=== PATIENT | female | born 1985 | race Caucasian/White ===

== ENCOUNTER → 2017-10-20 | Outpatient (CLI) | payer BC ==
[2017-10-21 04:05] LABS: Source VAG/CERVIX
[2017-10-22 15:11] LABS: HPV Genotype 16 Not Detected (NOTDET); HPV Genotype 18 Not Detected (NOTDET)
[2017-11-07 09:59] LABS: HPV High Risk Other Not Detected (NOTDET)
== END | disposition home or self-care (01) ==
LOC: LAB 10:05
PROVIDERS: Obstetrics & Gynecology
DX: Z01.419 Encounter for gynecological examination (general) (routine) without abnormal findings (principal); Z11.3 Encounter for screening for infections with a predominantly sexual mode of transmission
CPT/HCPCS: 87491; 87591; 87624; 87661; G0123

== ENCOUNTER → 2018-10-25 | Outpatient (CLI) | payer BC ==
[2018-10-31 23:10] LABS: CHLAMYDIA BY NAA Negative (Negative); GONOCOCCUS BY NAA Negative (Negative); HPV 16 Negative (Negative); HPV 18 Negative (Negative); HPV OTHER HR TYPES Negative (Negative); TRICH VAG BY NAA Negative (Negative)
== END | disposition home or self-care (01) ==
LOC: LAB 11:16 → LAB SHORT 11:16
PROVIDERS: Obstetrics & Gynecology
DX: Z01.419 Encounter for gynecological examination (general) (routine) without abnormal findings (principal); Z11.3 Encounter for screening for infections with a predominantly sexual mode of transmission
CPT/HCPCS: 87491; 87591; 87624; 87661; G0123

== ENCOUNTER → 2019-10-31 | Outpatient (CLI) | payer BC ==
[2019-11-02 15:09] LABS: HPV 16 Negative (Negative); HPV 18 Negative (Negative); HPV OTHER HR TYPES Negative (Negative)
== END | disposition home or self-care (01) ==
LOC: LAB SHORT 10:45 → LAB 10:45
PROVIDERS: Obstetrics & Gynecology
DX: Z01.419 Encounter for gynecological examination (general) (routine) without abnormal findings (principal)
CPT/HCPCS: 87624; G0123

== ENCOUNTER → 2022-03-09 | Outpatient (CLI) | payer SELFPAY ==
[2022-03-12 17:09] LABS: HSV-1 DNA Negative (Negative); HSV-2 DNA Negative (Negative)
== END | disposition home or self-care (01) ==
LOC: LAB 09:11 → LAB SHORT 09:11
PROVIDERS: Obstetrics & Gynecology
DX: N76.6 Ulceration of vulva (principal)
CPT/HCPCS: 87529

== ENCOUNTER → 2023-03-15 | Outpatient (CLI) | payer OTHER ==
[2023-03-17 14:10] LABS: HPV 16 Negative (Negative); HPV 18 Negative (Negative); HPV OTHER HR TYPES Negative (Negative)
== END | disposition home or self-care (01) ==
LOC: LAB SHORT 10:56 → LAB 10:56
PROVIDERS: Obstetrics & Gynecology
DX: Z01.419 Encounter for gynecological examination (general) (routine) without abnormal findings (principal)
CPT/HCPCS: 87624; G0145

== ENCOUNTER 2025-06-17 08:40 | Day surgery (SDC) | payer BC ==
[~2025-06-17] VITALS: Ht 160 cm; Wt 59.6 kg
[2025-06-17] VITALS (11 sets, daily range): BP systolic 113–122; BP diastolic 75–98
[~2025-06-17 08:40] MED LIST: BUPR150ER PO; Dexamethasone Sod Phos 10 MG/ML 1ML VIAL ONE; FentaNYL Citrate 50 MCG/ML 2 ML Injection ONE; MULTI-VITAMIN1 EAC2 PO; Ondansetron HCl 2 MG / ML 2ML Vial ONE; PROBIOTIC1 EA13 PO
[2025-06-17] MEDS ORDERED: FentaNYL Citrate 50 MCG/ML 2 ML Injection IV PRN ×2 (09:10→09:15)
[2025-06-17] MEDS ORDERED: CeFAZolin Sodium 2,000 MG in NS 100 ML IV SCH (09:15)
[2025-06-17] MEDS ORDERED: Midazolam HCl 1MG / ML 2ML Vial IV ONE (09:15)
[2025-06-17] MEDS ORDERED: Metoclopramide HCl 5MG / ML 2ML Vial IV PRN (09:15)
[2025-06-17] MEDS ORDERED: Ondansetron HCl 2 MG / ML 2ML Vial IV PRN (09:15)
--- NOTE | 2025-06-17 09:26 | NUR ---
Ambulatory in Day Surgery WITH STEADY GAIT. History, Chart, Medications and Allergies reviewed before start of procedure. Pre-Op teaching done. Pt verbalizes understanding. ALL BELONGINGS PLACED UNDER GURN. FAMILY AT BEDSIDE DURING PRE OP. Patient States Post-Procedure ride home has been arranged WITH SISTER AND MOM.
[2025-06-17] MEDS ORDERED: Albuterol 2.5 MG/3 ML VIAL INH PRN (09:40)
[2025-06-17] MEDS ORDERED: Bupivacaine 0.5% HCl 5 MG/ML 30MLVIAL ONE (10:45)
[2025-06-17] MEDS ORDERED: OxyCODONE 5 mg/Acetamin 325 mg TABLET PO PRN (12:05)
[2025-06-17] MEDS ORDERED: Ketorolac Tromethamine 30mg Vial ONE (12:29)
[2025-06-17] MEDS ORDERED: Ketorolac Tromethamine 30mg Vial IV ONE (12:30)
--- NOTE | 2025-06-17 13:34 | NUR ---
DISCHARGE NOTE PT A&OX4, BREATHING RA, VSS, PT TOLERATING PO INTAKE. PAIN MANAGED BY PO PAIN MEDICATION, NO NAUSEA REPORTED. Patient up to Ambulate independently. Gait steady. Discharge instructions reviewed with patient. Patient verbalizes understanding. Copy given to patient to take home. Dressing to procedure site clean, dry, intact with no visible drainage, swelling, erythema or bruising noted. Discharged via wheelchair to private car for ride home.
== END 2025-06-17 13:30 | disposition home or self-care (01) ==
LOC: ORSCMMR 08:40 → ORD 10:00 → ORSCMMR 10:00
PROVIDERS: Surgery
PROC: 05HM33Z Insertion of Infusion Device into Right Internal Jugular Vein, Percutaneous Approach (ICD-10-PCS; principal; 2025-06-17 10:00)
PROC: B543ZZA Ultrasonography of Right Jugular Veins, Guidance (ICD-10-PCS; principal; 2025-06-17 10:00)
PROC: 0JH63WZ Insertion of Totally Implantable Vascular Access Device into Chest Subcutaneous Tissue and Fascia, Percutaneous Approach (ICD-10-PCS; principal; 2025-06-17 10:00)
DX: C50.812 Malignant neoplasm of overlapping sites of left female breast (principal); Z17.0 Estrogen receptor positive status [ER+]; Z79.899 Other long term (current) drug therapy; Z87.891 Personal history of nicotine dependence
CPT/HCPCS: A9270; C1788; J0690; J1100; J1642; J1885; J2250; J2405; J2704; J3010; J7120